=== PATIENT | female | born 1970 | race Caucasian/White ===

== ENCOUNTER 2017-01-10 15:23 | Emergency (ER) | payer OTHER ==
--- NOTE | 2017-01-16 09:21 | ER ---
ADMIT: 01/10/2017 RM/LOC: ER [facility] MR#: [id number] [facility] [address] [place] [id number] TIERNEY QUINTANILLA [address] [place] [id number] Emergency Room Report SEX: F AGE: 46 : 1970 DATE: 01/10/2017 ADDENDUM: CHIEF COMPLAINT: Abdominal pain. HISTORY OF PRESENT ILLNESS: This is a 46-year-old female, who ate chicken fingers for lunch at noon. Around 12:30, she started having extreme epigastric pain who presents to the ER 3-4 hours later. PAST MEDICAL HISTORY: Fibromyalgia. PAST SURGICAL HISTORY: Include hysterectomy and tonsillectomy. COURSE IN THE EMERGENCY ROOM: I did a CBC, CMP, a lipase and urine. Urine showed 10 red blood cells. CMP is normal except for a GFR of 68. CBC was normal. Ultrasound of her gallbladder showed a contracted gallbladder, but no stones. I did advise her that she needs follow up on this. She is completely pain-free now. For the weekend, I told her to follow a non-fat diet and for Friday, establish care with a primary care physician and have her gallbladder further evaluated. CLINICAL IMPRESSION: Right upper quadrant abdominal pain. ELBA Bacon / Herman Strong MD / tracy JOB #: [id number] CC: Herman Strong MD, Attending Physician
== END 2017-01-10 17:15 | disposition home or self-care (01) ==
LOC: ER 15:23
DX: R10.11 Right upper quadrant pain (principal); Z90.710 Acquired absence of both cervix and uterus; Z98.890 Other specified postprocedural states